=== PATIENT | male | born 2000 | race African-American/Black ===

== ENCOUNTER 2020-08-14 09:21 | Emergency (ER) | payer BC, SELFPAY ==
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
[2020-08-14 09:29] VITALS: BP 119/83; PULSE 80; RESP 16; TEMP 36.3; O2SAT 99
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
== END 2020-08-14 10:25 | disposition home or self-care (01) ==
PROVIDERS: Emergency Provider Nurse Practitioner
DX: S29.012A Strain of muscle and tendon of back wall of thorax, initial encounter (principal); S39.012A Strain of muscle, fascia and tendon of lower back, initial encounter; V48.5XXA Car driver injured in noncollision transport accident in traffic accident, initial encounter
CPT/HCPCS: 72100; 99213; G0463

== ENCOUNTER 2020-10-09 05:26 | Emergency (ER) | payer BC, SELFPAY ==
--- NOTE | ~2020-10-09 | CT_ITS ---
EXAMINATION: CT abdomen pelvis wo con DATE: 10/09/2020 05:49 INDICATION: Left lower quadrant abdominal pain. TECHNIQUE: Computed tomography (CT) of the abdomen and pelvis was performed without intravenous contr ast. Automated exposure control and iterative reconstruction technique were employed. The dose-length product was 221.46 mGy-cm. COMPARISON: None FINDINGS: Lung bases are clear. Heart size is normal. No pericardial or pleural effusion. Assessment of the vis ceral organs of the abdomen and pelvis is limited by the combination of a posterior fat and absence o f intravenous contrast. Liver, gallbladder, spleen, pancreas and bilateral adrenal glands are normal. 1-2 mm nonobstructing right renal stone. Partially decompressed bladder is normal. No dilated loops of bowel to suggest obstruction. The appendix is not visualized. No pericecal inflammatory change to suggest acute appendicitis. No free intraperitoneal gas or fluid. No pathologically enlarged abdomina l or pelvic lymphadenopathy. L5 is sacralized on the left. Bones are otherwise unremarkable. IMPRESSION: 1. 1-2 mm nonobstructing right renal stone. No acute intra-abdominal/pelvic process although assessme nt is limited by paucity of fat and absence of intravenous contrast. Reviewed, dictated and finalized at location A. IMPRESSION: 1. 1-2 mm nonobstructing right renal stone. No acute intra-abdominal/pelvic pro cess although assessment is limited by paucity of fat and absence of intravenou s contrast.
[2020-10-09 05:25] VITALS: BP 159/103; PULSE 52; RESP 22; TEMP 36.9; O2SAT 100
--- NOTE | 2020-10-09 05:38 | ED.GENADULT ---
HPI - General Adult General Chief complaint: Abdominal Pain <Jean Pierre Orellana MD - Last Filed: 10/09/20 07:04> Stated complaint: llq abd pain <Jean Pierre Orellana MD - Last Filed: 10/09/20 07:04> Time Seen by Provider: 10/09/20 05:38 <Jean Pierre Orellana MD - Last Filed: 10/09/20 07:04> History of Present Illness HPI narrative: Patient is a 20-year-old gentleman who presents the emergency department chief complaint of left lower quadrant pain. Patient reports he woke up from sleep having severe pain in the left lower quadrant reports not improved by anything or is worsened by anything. Patient reports has had some nausea with this denies fever denies chills patient reports has had no prior history of surgery on his abdomen. Patient denies history of kidney stones. Patient reports not improved by anything or is worsened by anything <Jean Pierre Orellana MD - Last Filed: 10/09/20 07:04> Related Data Allergies/adverse reactions: Allergies Allergy/AdvReac Type Severity Reaction Status Date / Time No Known Allergies Allergy Verified 10/09/20 05:40 <Jean Pierre Orellana MD - Last Filed: 10/09/20 07:04> Review of Systems Review of Systems: Narrative: A 10 system review of systems was completed on the patient and is negative except for what is stated in the HPI. Nursing and ancillary documentation was reviewed. <Jean Pierre Orellana MD - Last Filed: 10/09/20 07:04> [facility] Past Medical History Medical History: Medical History No acute medical problems <Jean Pierre Orellana MD - Last Filed: 10/09/20 07:04> Family History Family History: Family History Other No acute medical problems <Jean Pierre Orellana MD - Last Filed: 10/09/20 07:04> Social History Social History: Social History Smoking status: Never smoker Alcohol intake: current <Jean Pierre Orellana MD - Last Filed: 10/09/20 07:04> Exam Narrative: Exam Narrative: GENERAL: Well-appearing, well-nourished, and in no acute distress. HEAD: Normocephalic, atraumatic. EYES: PERRLA and EOMI. ENT: Nares clear, no rhinorrhea or epistaxis. Mucous membranes moist. NECK: Supple. CHEST: Clear to auscultation. No respiratory distress. HEART: Regular rate and rhythm. No murmur heard. Normal peripheral pulses. ABDOMEN: Soft, nontender, nondistended, normal active bowel sounds. EXTREMITIES: Normal range of motion. No edema. SKIN: Warm, dry, no rash. NEURO: No focal deficits. Alert and oriented x3. PSYCH: Normal mood and affect. <Jean Pierre Orellana MD - Last Filed: 10/09/20 07:04> Course Course Emergency Course: patient is feeling better, ct scan shows no obstructing stone. the patient does not have a large amout of intraabdominal fat. <Jean Pierre Orellana MD - Last Filed: 10/09/20 07:04> CT unrevealing. Patient still complaining of pain. He adamantly denies any symptoms. Pain resolved after toradol and he is eager for discharge. <Dustin Hodgson MD - Last Filed: 10/09/20 16:31> Vital Signs Vital signs: Vital Signs Temperature 36.9 C 10/09/20 05:25 Pulse Rate 52 L 10/09/20 05:25 Respiratory Rate 22 H 10/09/20 05:25 Blood Pressure 159/103 H 10/09/20 05:25 Pulse Oximetry 100 10/09/20 05:25 Temperature 36.9 C 10/09/20 05:25 Pulse Rate 56 L 10/09/20 09:36 Respiratory Rate 18 10/09/20 09:36 Blood Pressure 129/78 10/09/20 09:36 Pulse Oximetry 99 10/09/20 09:36 <Jean Pierre Orellana MD - Last Filed: 10/09/20 07:04> Vital Signs Temperature 36.9 C 10/09/20 05:25 Pulse Rate 52 L 10/09/20 05:25 Respiratory Rate 22 H 10/09/20 05:25 Blood Pressure 159/103 H 10/09/20 05:25 Pulse Oximetry 100
[2020-10-09] MEDS: SODIUM CHLORIDE 0.9% IV 1,000 ML 999 ML IV CONT (05:52)
[2020-10-09] MEDS: ONDANSETRON INJ 4 MG/2 ML VIAL IV PUSH (05:57)
[2020-10-09] MEDS: MORPHINE SULFATE (*CRX) 4 MG/ML INJ IV PUSH (06:00)
--- NOTE | 2020-10-09 06:17 | PC.NURSE ---
pt didnt tighten urine specimen cup, urine in bag, unable to obtain clean urine specimen at this time.
[2020-10-09 06:19] LABS: Basophils Absolute Auto 0.1 K/mm3 (0.0-0.1); Basophils Percent Auto 0.4 % (0.2-1.2); Eosinophils Absolute Auto 0.2 K/mm3 (0-0.3); Eosinophils Percent Auto 1.7 % (0-4.4); Hemoglobin 13.5 g/dL (14.0-18.0); Immature Granulocyte Absolute 0.06 K/mm3 (0.00-0.031); Immature Granulocyte Percent A 0.5 % (0-0.5); Lymphocytes Percent Auto 7.6 % (18.3-44.2); Mean Corpuscular HGB Conc 33.8 g/dl (32-36); Mean Corpuscular Hemoglobin 32.7 pg (26-34); Mean Corpuscular Volume 96.9 fl (80-100); Mean Platelet Volume 9.9 fl (7.4-10.4); Monocytes Absolute Auto 0.7 K/mm3 (0.1-0.6); Monocytes Percent Auto 6.2 % (2.6-8.5); Neutrophils Absolute Auto 9.9 K/mm3 (1.3-6.7); Neutrophils Percent Auto 83.6 % (45.5-73.1); Platelet Count Result 152 k/mm3 (150-375); Red Blood Count 4.13 M/mm3 (4.6-6.20); Red Cell Distribution Width 12.4 % (11.5-14.5); White Blood Count 11.8 K/mm3 (4.5-10.0)
[2020-10-09 06:30] LABS: Alanine Aminotransferase 21 U/L (4-50); Albumin Level 4.2 g/dL (3.5-5.1); Alkaline Phosphatase 68 U/L (38-126); Anion Gap 7 mmol/L (8-16); Aspartate Amino Transferase 35 U/L (17-59); Bilirubin,Total 0.9 mg/dL (0.2-1.3); Blood Urea Nitrogen 11 mg/dL (9-20); Calcium 9.1 mg/dL (8.4-10.2); Carbon Dioxide 27 mmol/L (22-30); Chloride 104 mmol/L (98-107); Estimated CRCL calculation 84 ml/min; Estimated Glomerular Filt Rate > 60; Glucose 181 mg/dL (75-110); Lipase 57 U/L (23-300); Potassium 3.5 mmol/L (3.4-5.0); Sodium 138 mmol/L (137-145)
--- NOTE | 2020-10-09 06:37 | PC.NURSE ---
pt states he is unable to provide urine sample at this time.
[2020-10-09 07:11] LABS: Add Urine Microscopic? YES; Amorphous Sediment Urine Few; Appearance Urine Cloudy (Clear); Bacteria Urine Trace /hpf; Bilirubin Urine Negative (Negative); Color Urine Yellow (Yellow); Glucose Urine UA 2+ mg/dL (Negative); Ketones Urine 2+ mg/dL (Negative); Leukocyte Esterase Ur Trace LEU/UL (Negative); Mucus Urine Heavy /lpf; Nitrate Urine Negative (Negative); Protein Urine 2+ mg/dL (Negative); RBC Urine 0-2 /hpf (0-2); Squamous Epithelial Cell Urine Rare /hpf (Few)
[2020-10-09 07:14] LABS: Blood Urine Negative (Negative); Specific Grav Ur 1.031 (1.001-1.035)
--- NOTE | 2020-10-09 08:31 | PC.NURSE ---
Pt requesting more pain medication. ERP made aware.
[2020-10-09] MEDS: KETOROLAC 30 MG/ML VIAL (*BKC) IV PUSH (08:47)
--- NOTE | 2020-10-09 08:49 | PC.NURSE ---
Dr. Hodgson at bedside to update pt on results.
--- NOTE | 2020-10-09 09:28 | PC.NURSE ---
Pt states he is feeling much better and ready for discharge. Ride on the way to nut picker pt. Christie Hayes.
[2020-10-09 09:36] VITALS: BP 129/78; PULSE 56; RESP 18; O2SAT 99
== END 2020-10-09 09:37 | disposition home or self-care (01) ==
PROVIDERS: Emergency Provider Emergency Medicine
DX: R10.32 Left lower quadrant pain (principal); N20.0 Calculus of kidney
CPT/HCPCS: 36415; 74176; 80053; 81001; 83690; 85025; 87086; 87088; 96361; 96374; 96375; 99284; J1885; J2270; J2405; J7030

== ENCOUNTER 2020-12-10 10:08 | Emergency (ER) | payer BC, SELFPAY ==
[2020-12-10 10:15] VITALS: BP 133/92; PULSE 53; RESP 16; TEMP 36.2; O2SAT 100
--- NOTE | 2020-12-10 10:44 | ED.ABDPAIN ---
HPI - Abdominal Pain General Chief Complaint: Abdominal Pain Stated Complaint: R SIDE ABD PAIN Time Seen by Provider: 12/10/20 10:19 Source: patient and RN notes reviewed Mode of arrival: ambulatory Limitations: no limitations History of Present Illness HPI narrative: Patient presents today complaining of right lower quadrant abdominal pain that woke him up from sleep this morning. It has been constant since waking up. Associated symptoms include chills. Denies nausea, vomiting, diarrhea, constipation, sweats, fever, urinary symptoms. Currently rates his pain 7/10 and has tried no treatment prior to arrival. Patient was in the ER in September 2020 for similar symptoms on the left side, but states at that time symptoms were much worse. A CT scan was performed without contrast and was unremarkable except for a 1 to 2 mm renal stone on the right. Patient was discharged with a prescription for dicyclomine. MD elicited complaint: abdominal pain Related Data Allergies Allergy/AdvReac Type Severity Reaction Status Date / Time No Known Allergies Allergy Verified 10/09/20 05:40 Review of Systems Review of Systems: Narrative: CONSTITUTIONAL: Denies body aches, fever, or sweats. + Chills EYES: Denies visual changes, redness, or discharge. ENT: Denies rhinorrhea, congestion, sore throat, or otalgia. CARDIOVASCULAR: Denies chest pain, palpitations, or edema. RESPIRATORY: Denies cough or dyspnea. GASTROINTESTINAL: Denies nausea, vomiting, or diarrhea. + Abdominal pain GENITOURINARY: Denies dysuria or hematuria. SKIN: Denies rash, itching, or wounds. MUSCULOSKELETAL: Denies back pain, joint pain, or myalgia. NEUROLOGIC: Denies headache, numbness, tingling, or weakness. PSYCH: Denies depression or anxiety. [facility] Past Medical History Medical History No acute medical problems Family History Family History Other No acute medical problems Social History Social History Smoking status: Never smoker Alcohol intake: current Comments At time of signature, I have reviewed and agree with nursing past medical, surgical, social and family history unless otherwise noted. Please see nursing chart for further information. There is no relevant family history pertinent to the presenting complaint Exam Narrative: Exam Narrative: GENERAL: Well-appearing, well-nourished, and in mild pain distress. Patient sits hunched over on the exam table. HEAD: Normocephalic, atraumatic. EYES: EOMI. No redness or drainage. Conjunctivae normal. ENT: Mucous membranes pink and moist. NECK: Normal AROM. CHEST: No respiratory distress. Clear to auscultation. HEART: Regular rate and rhythm. No murmur appreciated. Normal peripheral pulses. ABDOMEN: Soft, nondistended, normal active bowel sounds. +Tenderness to right lower quadrant with guarding, without rebound. Palpation of left lower quadrant reproduces pain in the right lower quadrant. MUSCULOSKELETAL: No bony tenderness. EXTREMITIES: Normal range of motion. No edema. SKIN: Warm, dry, no rash. Capillary refill normal. Normal skin turgor. NEURO: No focal deficits. Alert and oriented x3. Gait steady. PSYCH: Normal affect. No signs of depression or anxiety. Course Vital Signs Vital signs: Vital Signs Temperature 97.2 F L 12/10/20 10:15 Pulse Rate 53 L 12/10/20 10:15 Respiratory Rate 16 12/10/20 10:15 Blood Pressure 133/92 H 12/10/20 10:15 Pulse Oximetry 100 12/10/20 10:15 Temperature 97.2 F L 12/10/20 10:15 Pulse Rate 53 L 12/10/20 10:15 Respiratory Rate 16 12/10/20 10:15 Blood Pressure 133/92 H 12/10/20 10:15 Pulse Oximetry 100 12/10/20 10:15 Reviewed Transfer Transfered to: [facility]: Other (Private vehicle) Transfer rationale: Right lower quadrant abdominal pain Accept
== END 2020-12-10 10:51 | disposition short-term general hospital (02) ==
PROVIDERS: Emergency Provider Nurse Practitioner
DX: R10.31 Right lower quadrant pain (principal)
CPT/HCPCS: 81003; 99212; G0463

== ENCOUNTER 2020-12-10 11:00 | Emergency (ER) | payer BC, SELFPAY ==
--- NOTE | ~2020-12-10 | CT_ITS ---
EXAMINATION: CT abdomen pelvis wo con DATE: 12/10/2020 12:16 INDICATION: Right lower quadrant abdominal pain. Right flank pain. TECHNIQUE: Computed tomography (CT) of the abdomen and pelvis was performed without intravenous contr ast. Automated exposure control and iterative reconstruction technique were employed. The dose-length product was 181.41 mGy-cm. COMPARISON: CT abdomen and pelvis 10/09/2020 FINDINGS: The visualized portions of the lung bases are clear without pneumonia or pleural effusion. The heart size is normal. No pericardial effusion. The liver, spleen, gallbladder, pancreas, adrenal glands, and left kidney are normal. There is a 2 mm stone in right kidney. There are no dilated loops of bowel. The appendix is normal. There are no pathologically enlarged lymph nodes. There is no free intraperitoneal fluid. The bones are unremarkable. IMPRESSION: 1. 2 mm nonobstructing right kidney stone. Reviewed, dictated and finalized at location A.
[2020-12-10 11:30] VITALS: BP 106/78; PULSE 50; RESP 18; TEMP 37.2; O2SAT 100
[2020-12-10 11:37] LABS: Basophils Absolute Auto 0.1 K/mm3 (0.0-0.1); Basophils Percent Auto 0.9 % (0.2-1.2); Eosinophils Absolute Auto 0.1 K/mm3 (0-0.3); Eosinophils Percent Auto 2.5 % (0-4.4); Hematocrit 43.1 % (42.0-52.0); Hemoglobin 14.3 g/dL (14.0-18.0); Immature Granulocyte Absolute 0.01 K/mm3 (0.00-0.031); Immature Granulocyte Percent A 0.2 % (0-0.5); Lymphocytes Absolute Auto 1.29 K/mm3 (0.9-3.2); Lymphocytes Percent Auto 23.2 % (18.3-44.2); Mean Corpuscular HGB Conc 33.2 g/dl (32-36); Mean Corpuscular Hemoglobin 31.7 pg (26-34); Mean Corpuscular Volume 95.6 fl (80-100); Mean Platelet Volume 10.5 fl (7.4-10.4); Monocytes Absolute Auto 0.4 K/mm3 (0.1-0.6); Monocytes Percent Auto 7.9 % (2.6-8.5); Neutrophils Absolute Auto 3.6 K/mm3 (1.3-6.7); Neutrophils Percent Auto 65.3 % (45.5-73.1); Platelet Count Result 176 k/mm3 (150-375); Red Blood Count 4.51 M/mm3 (4.6-6.20); Red Cell Distribution Width 12.8 % (11.5-14.5); White Blood Count 5.6 K/mm3 (4.5-10.0)
[2020-12-10 11:46] LABS: Add Urine Microscopic? YES; Appearance Urine Clear (Clear); Bacteria Urine Trace /hpf; Bilirubin Urine Negative (Negative); Blood Urine Negative (Negative); Color Urine Yellow (Yellow); Glucose Urine UA Negative (Negative); Ketones Urine Negative (Negative); Leukocyte Esterase Ur Trace LEU/UL (Negative); Mucus Urine Few /lpf; Nitrate Urine Negative (Negative); Protein Urine Negative (Negative); Specific Grav Ur 1.021 (1.001-1.035); Transitional Epi Cells Urine Rare /hpf (None Seen); WBC Urine 51-75 /hpf
[2020-12-10 11:47] LABS: Alanine Aminotransferase 21 U/L (4-50); Albumin Level 4.4 g/dL (3.5-5.1); Alkaline Phosphatase 57 U/L (38-126); Anion Gap 9 mmol/L (8-16); Aspartate Amino Transferase 30 U/L (17-59); Bilirubin,Total 0.8 mg/dL (0.2-1.3); Blood Urea Nitrogen 13 mg/dL (9-20); Calcium 9.3 mg/dL (8.4-10.2); Carbon Dioxide 24 mmol/L (22-30); Chloride 105 mmol/L (98-107); Estimated Glomerular Filt Rate > 60; Glucose 100 mg/dL (75-110); Lipase 68 U/L (23-300); Potassium 4.2 mmol/L (3.4-5.0); Sodium 138 mmol/L (137-145)
[2020-12-10] MEDS: SODIUM CHLORIDE 0.9% IV 1,000 ML 999 ML IV CONT (11:51)
[2020-12-10] MEDS: HYOSCYAMINE SULFATE 0.125 MG TABLET PO (11:52)
[2020-12-10] MEDS: FAMOTIDINE 20 MG/2 ML VIAL IV PUSH (11:52)
--- NOTE | 2020-12-10 12:57 | ED.GENADULT ---
HPI - General Adult General Chief complaint: Abdominal Pain Stated complaint: ABD PAIN Time Seen by Provider: 12/10/20 11:05 Source: patient and RN notes reviewed Mode of arrival: ambulatory Limitations: no limitations History of Present Illness HPI narrative: Patient is a 20-year-old male presents to emergency department for evaluation of last right lower quadrant abdominal pain that began today patient was seen at urgent care referred to emergency department no sharp pain in the right lower abdomen denies any other complaints or symptoms denies similar occurrence and on arrival is in the room in no distress resting comfortably Related Data Allergies Allergy/AdvReac Type Severity Reaction Status Date / Time No Known Allergies Allergy Verified 12/10/20 11:02 Review of Systems Review of Systems: All systems reviewed & are unremarkable except as noted in HPI and below PMFSH Past Medical History Medical History No acute medical problems Family History Family History Other No acute medical problems Social History Social History Smoking status: Never smoker Alcohol intake: current Exam Narrative: Exam Narrative: GENERAL: Well-appearing, well-nourished, and in no acute distress. HEAD: Normocephalic, atraumatic. EYES: PERRLA and EOMI. ENT: Nares clear, no rhinorrhea or epistaxis. Mucous membranes moist. CHEST: Clear to auscultation. No respiratory distress. No wheezes rales or rhonchi HEART: Regular rate and rhythm. No murmur heard. Normal peripheral pulses. ABDOMEN: Soft, right lower quadrant abdominal pain remainder of abdomen nontender no rebound or guarding, nondistended EXTREMITIES: Normal range of motion. No edema. SKIN: Warm, dry, no rash. NEURO: No focal deficits. Alert and oriented x3. PSYCH: Normal mood and affect. Course Course Emergency Course: Patient evaluated the emergency department will be discharged home with outpatient follow-up patient will also be tested and treated for STDs given his urinary tract infection patient is aware of this patient agrees with this plan felt appropriate for outpatient reevaluation Vital Signs Vital signs: Vital Signs Temperature 98.9 F 12/10/20 11:30 Pulse Rate 50 L 12/10/20 11:30 Respiratory Rate 18 12/10/20 11:30 Blood Pressure 106/78 12/10/20 11:30 Pulse Oximetry 100 12/10/20 11:30 Temperature 98.9 F 12/10/20 11:30 Pulse Rate 50 L 12/10/20 11:30 Respiratory Rate 18 12/10/20 11:30 Blood Pressure 106/78 12/10/20 11:30 Pulse Oximetry 100 12/10/20 11:30 Medical Decision Making MDM Narrative Medical decision making narrative: Patient presented with abdominal pain, urinary tract infection diagnosed patient had no other high risk changes in the blood work or imaging will be discharged home with outpatient follow-up provided with reasons to return agreeing with this plan is afebrile nontoxic-appearing no distress and without emesis Vital Signs Vital Signs: Vital Signs Temperature 98.9 F 12/10/20 11:30 Pulse Rate 50 L 12/10/20 11:30 Respiratory Rate 18 12/10/20 11:30 Blood Pressure 106/78 12/10/20 11:30 Pulse Oximetry 100 12/10/20 11:30 Temperature 98.9 F 12/10/20 11:30 Pulse Rate 50 L 12/10/20 11:30 Respiratory Rate 18 12/10/20 11:30 Blood Pressure 106/78 12/10/20 11:30 Pulse Oximetry 100 12/10/20 11:30 Lab Data Result diagrams: 12/10/20 11:27 12/10/20 11:27 Labs: Lab Results 12/10/20 12/10/20 12/10/20 Range/Units 11:27 11:27 11:27 WBC 5.6 (4.5-10.0) K/mm3 RBC 4.51 L (4.6-6.20) M/mm3 Hgb 14.3 (14.0-18.0) g/dL Hct 43.1 (42.0-52.0) % MCV 95.6 (80-100) fl MCH 31.7 (26-34) pg MCHC 33.2 (32-36) g/dl RDW 12.8 (11.5-14.5) % Plt Count 176
[2020-12-10] MEDS: KETOROLAC 30 MG/ML VIAL (*BKC) IV PUSH (13:07)
[2020-12-10 13:15] VITALS: BP 110/75; PULSE 58; RESP 18; TEMP 36.9; O2SAT 100
== END 2020-12-10 13:15 | disposition home or self-care (01) ==
PROVIDERS: Emergency Medicine Emergency Medical Services; Emergency Provider Emergency Medicine
DX: N39.0 Urinary tract infection, site not specified (principal); R10.31 Right lower quadrant pain
CPT/HCPCS: 36415; 74176; 80053; 81001; 81003; 83690; 85025; 87086; 96365; 96375; 99284; A9270; J0696; J1885; J7030

== ENCOUNTER 2021-01-06 07:17 | Day surgery (SDC) | payer BC, SELFPAY ==
[2021-01-06] VITALS (11 sets, daily range): BP systolic 126–151; BP diastolic 72–93; PULSE 52–99; RESP 12–21; TEMP 36.3–37.2; O2SAT 100
--- NOTE | ~2021-01-06 | CT_ITS ---
EXAMINATION: CT abdomen pelvis w con DATE: 01/06/2021 09:35 INDICATION: Diffuse lower abdominal pain TECHNIQUE: Computed tomography (CT) of the abdomen and pelvis was performed without intravenous contr ast. Automated exposure control and iterative reconstruction technique were employed. Exam dose: 336 .83 mGy-cm total exam DLP. COMPARISON: 12/10/2020 CT abdomen pelvis FINDINGS: The lung bases are clear of infiltrate or consolidation. Normal heart size. No pericardial or pleural effusion. The liver, spleen, gallbladder, bile ducts, pancreas, pancreatic, adrenal glands and kidneys are unre markable. Normal caliber of the abdominal aorta. No intraperitoneal or retroperitoneal or pelvic mass lesion or adenopathy or ascites. There is a tubular 10 mm diameter structure in the right lower quadrant with mild thickening of the w all suggesting possible appendicitis. No abscess is evident. Clinical correlation is advised. No bowel obstruction or intraperitoneal free air. Included skeletal structures are unremarkable. IMPRESSION: Probable 10 mm dilated appendix with wall thickening; recommend clinical correlation for acute appendicitis Reviewed, dictated and finalized at [facility] Reviewed, dictated and finalized at [facility]. IMPRESSION: Probable 10 mm dilated appendix with wall thickening; recommend cl inical correlation for acute appendicitis
--- NOTE | 2021-01-06 08:03 | PC.NURSE ---
pt in waiting room - c/o about waiting for a room - using foul language - speaking loudly - security speaking with pt now.
[2021-01-06 08:52] LABS: Basophils Percent Auto 0.2 % (0.2-1.2); Eosinophils Percent Auto 0.2 % (0-4.4); Hematocrit 47.9 % (42.0-52.0); Hemoglobin 15.8 g/dL (14.0-18.0); Immature Granulocyte Absolute 0.08 K/mm3 (0.00-0.031); Immature Granulocyte Percent A 0.5 % (0-0.5); Lymphocytes Absolute Auto 1.26 K/mm3 (0.9-3.2); Lymphocytes Percent Auto 7.6 % (18.3-44.2); Mean Corpuscular Hemoglobin 31.5 pg (26-34); Mean Corpuscular Volume 95.6 fl (80-100); Monocytes Absolute Auto 1.1 K/mm3 (0.1-0.6); Monocytes Percent Auto 6.5 % (2.6-8.5); Neutrophils Absolute Auto 14.1 K/mm3 (1.3-6.7); Platelet Count Result 243 k/mm3 (150-375); Red Blood Count 5.01 M/mm3 (4.6-6.20); Red Cell Distribution Width 13.2 % (11.5-14.5); White Blood Count 16.6 K/mm3 (4.5-10.0)
[2021-01-06 09:05] LABS: Add Urine Microscopic? YES; Appearance Urine Clear (Clear); Bilirubin Urine Negative (Negative); Blood Urine Negative (Negative); Color Urine Amber (Yellow); Glucose Urine UA Negative (Negative); Ketones Urine 1+ mg/dL (Negative); Leukocyte Esterase Ur 1+ LEU/UL (Negative); Mucus Urine Heavy /lpf; Nitrate Urine Negative (Negative); Protein Urine 2+ mg/dL (Negative); RBC Urine 0-2 /hpf (0-2); Squamous Epithelial Cell Urine Occasional /hpf (Few)
[2021-01-06 09:05] LABS: Alanine Aminotransferase 41 U/L (4-50); Albumin Level 5.1 g/dL (3.5-5.1); Alkaline Phosphatase 73 U/L (38-126); Anion Gap 12 mmol/L (8-16); Aspartate Amino Transferase 41 U/L (17-59); Bilirubin,Total 1.7 mg/dL (0.2-1.3); Blood Urea Nitrogen 13 mg/dL (9-20); Calcium 10.3 mg/dL (8.4-10.2); Carbon Dioxide 26 mmol/L (22-30); Chloride 97 mmol/L (98-107); Estimated CRCL calculation 87 ml/min; Estimated Glomerular Filt Rate > 60; Glucose 115 mg/dL (65-110); Lipase 69 U/L (23-300); Potassium 3.8 mmol/L (3.4-5.0); Sodium 135 mmol/L (137-145)
[2021-01-06 09:06] LABS: Specific Grav Ur 1.039 (1.001-1.035)
[2021-01-06] MEDS: ONDANSETRON INJ 4 MG/2 ML VIAL IV PUSH (09:23)
[2021-01-06] MEDS: SODIUM CHLORIDE 0.9% IV 1,000 ML 999 ML IV CONT (09:23)
--- NOTE | 2021-01-06 09:46 | ED.ABDPAIN ---
HPI - Abdominal Pain General Chief Complaint: Abdominal Pain Stated Complaint: kidney stone Time Seen by Provider: 01/06/21 08:56 History of Present Illness HPI narrative: Patient presents with lower abdominal pain. Symptoms present for the past 3 to 4 days. Pain is achy/crampy, constant, in his lower abdomen, no radiation. Reports nausea and vomiting denies any bile or blood. Denies any diarrhea has been unable to have a bowel movement as well. Denies any urinary. Denies any fevers. He reports a history of renal stones and is unsure if this would be related they are to come in for evaluation. Related Data Allergies Allergy/AdvReac Type Severity Reaction Status Date / Time No Known Allergies Allergy Verified 01/06/21 14:26 Review of Systems Review of Systems: CONSTITUTIONAL: Denies fever, chills, or sweats. EYES: Denies visual changes, redness, or discharge. ENT: Denies rhinorrhea, congestion, sore throat, or otalgia. CARDIOVASCULAR: Denies chest pain, palpitations, or edema. RESPIRATORY: Denies cough or dyspnea. GASTROINTESTINAL: Denies diarrhea. GENITOURINARY: Denies dysuria or hematuria. SKIN: Denies rash or itching. MUSCULOSKELETAL: Denies back pain, joint pain, or myalgia. NEUROLOGIC: Denies headache, numbness, dizziness, or weakness. PSYCHIATRIC: Denies anxiety or depression. 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 He also works at [employer]. He wishes to be a full code. He designates his mother, Pia, to be his medical decision maker if needed. Smoking status: Never smoker Alcohol intake: current Substance use: current Substance use type: marijuana Other substance usage details: Smokes marijuana regularly/daily. Last use: 2 days ago Occupation/Education: student Gender identity (if verbalized by the patient): Male Exam Narrative: GENERAL: Well-appearing, well-nourished, and in no acute distress. HEAD: Normocephalic, atraumatic. EYES: PERRLA and EOMI. ENT: Nares clear, no rhinorrhea or epistaxis. Mucous membranes moist. NECK: Supple. No masses. No JVD ABDOMEN: Mild diffuse lower abdominal pain, soft nondistended. EXTREMITIES: Normal range of motion. No edema. SKIN: Warm, dry, no rash. NEURO: No focal deficits. Alert and oriented x3. PSYCH: Normal mood and affect. Course Reevaluation(s) Reevaluation #1: Patient is resting comfortably reports there is some improvement with his symptoms given supportive therapy in the ER. Imaging is pending Date: 01/06/21 Time: 09:59 Consultations Consultation #1: Pending surgical consultation for appendicitis Date: 01/06/21 Time: 11:04 Consultation #2: Pending Surgical evaluation Date: 01/06/21 Time: 12:38 Vital Signs Vital signs: Vital Signs Temperature 37.2 C 01/06/21 07:41 Pulse Rate 72 01/06/21 07:41 Respiratory Rate 16 01/06/21 07:41 Blood Pressure 132/83 01/06/21 07:41 Pulse Oximetry 100 01/06/21 07:41 Temperature 37.2 C 01/06/21 07:41 Pulse Rate 59 L 01/06/21 13:55 Respiratory Rate 15 01/06/21 13:55 Blood Pressure 133/88 01/06/21 13:55 Pulse Oximetry 100 01/06/21 13:55 MDM - Abdominal Pain MDM Narrative Medical decision making narrative: H&P as above, vss, pt looks clinically well, exam diffuse lower abdominal pain, labs with leukocytosis, img concerning for appendicitis, additional labs/img c
[2021-01-06] MEDS: MORPHINE SULFATE (*CRX) 4 MG/ML INJ IV PUSH (10:44)
--- NOTE | 2021-01-06 13:30 | PM.IMHP ---
H&P: HPI History of Present Illness Date/Time: 01/06/21 13:30 Chief Complaint: Lower abdominal pain, vomiting Narrative: This is an -Finnish 20 yo male who is otherwise healthy and presented to the ER today with complaints of lower abdominal pain. He reports that two days ago he took a nap in the afternoon after having some mimosas and woke up with some mild right lower quadrant abdominal pain. He developed vomiting through the night and had difficulty sleeping due to the pain and vomiting. Yesterday, his pain persisted and he felt it migrated across his entire lower abdomen. He attempted to go to work, but had to leave due to the abdominal pain. He denies fever or chills. Last night, he tried to wait out the pain and it continued again through the night with a few more episodes of vomiting. Due to the progressively worsening pain, he presented to the ER for further evaluation. CT scan of the abdomen and pelvis showed a tubular structure, probably the appendix, that measures up to 10 mm with wall thickening, suggestive of possible acute uncomplicated appendicitis. Labs revealed a white blood cell count of 16,600. The ER provider consulted our service for surgical evaluation of possible acute appendicitis. The patient is now seen in the ER. He is still reporting 8/10 abdominal pain across his lower abdomen. He does feel it is more on the left lower quadrant with the pain migrating over the last 24 hours. He denies any other symptoms. Also to note, he was recently on doxycycline that was prescribed to him by the ER on 12/10/20 after he was evaluated at that time with RLQ abdominal pain. Labs at that time showed no leukocytosis and his CT scan abd/pelvis showed a nonobstructing right renal stone, but no other acute intraabdominal abnormalities. Urinalysis was abnormal and he was treated for suspected urinary tract infection and possible STDs. They reported having done STD testing, but I do not see any test results in the electronic medical record. Urine culture showed no growth of any organisms. Patient was not sure of any STD testing and denies any recent unprotected sex. He reports taking the antibiotics as prescribed and finished the antibiotics over the weekend before his pain started. He reports the pain that started on Tuesday was similar to the pain he experienced in September and a few weeks ago, but the last two times this resolved quickly in the ER with treatment. This time, his abdominal pain has migrated and is persistent even with analgesics. Denies any hematuria, dysuria, penile discharge or rash, or any other urinary complaints. Review of Systems Review of Systems: All systems reviewed & are unremarkable except as noted in HPI and below Constitutional: Constitutional: Reports as per HPI, Denies chills, Denies fatigue and Denies fever(s) ENT: Reports system reviewed and no additional complaints, except as documented and Reports Normal hearing present Cardiovascular: Cardiovascular: Reports no additional cardiovascular complaints, Denies chest pain and Denies leg edema Respiratory: Respiratory: Reports no additional respiratory complaints, Denies cough and Denies dyspnea Gastrointestinal: Gastrointestinal: Reports as per HPI, Reports no additional gastrointestinal complaints, Reports abdominal pain, Denies bloating, Denies change in bowel habits, Denies change in stool character, Denies constipation, Denies diarrhea, Reports nausea, Reports vomiting and Denies hematemesis Genitourinary: Genitourinary: Denies hematuria and Denies dysuria Musculoskeletal: Musculoskeletal: Denies abnormal gait and Denies joint swelling Integumentary/Breasts: Skin/Breast: Denies wounds Neurologic: Reports system reviewed and no additional complaints, except as documented, Denies dizziness, Denies focal weakness, Denies numbness and Denies tingling Psychiatric: Psychiatric: Reports anxiety (about thinking of surgery) [facility] Past Medical History Medical History (Updated
[2021-01-06] MEDS: fentaNYL CITRATE INJ (*CRX) 100 MCG/2 ML VIAL 50 MCG IV PUSH (14:13)
--- NOTE | 2021-01-06 14:51 | WPDANESEPPF ---
Anes - Initial Pre Proc Eval Procedure: Operation Date: 01/06/21 14:30 Proposed Procedures p Laparoscopic Appendectomy,Possible Open - Rolo Jasso DO Date/Time: 01/06/21 14:51 Surgeon: Rolo Jasso DO Pre Op Diagnosis: Acute Appendicitis Patient Data Age: 20 Gender: M Height: 1.7 m Weight: 68 kg Last Vital Signs Temp 37.2 C 01/06/21 07:41 Pulse 59 L 01/06/21 13:55 Resp 15 01/06/21 13:55 BP 133/88 01/06/21 13:55 Pulse Ox 100 01/06/21 13:55 Allergies Allergy/AdvReac Type Severity Reaction Status Date / Time No Known Allergies Allergy Verified 01/06/21 14:26 Home Medications Medication Instructions Recorded Confirmed Type ibuprofen [IBU] 600 mg PO QID PRN #7 tablet 12/10/20 01/06/21 Rx Laboratory Tests 01/06/21 01/06/21 01/06/21 08:43 08:43 08:52 WBC 16.6 K/mm3 H K/mm3 (4.5-10.0) RBC 5.01 M/mm3 M/mm3 (4.6-6.20) Hgb 15.8 g/dL g/dL (14.0-18.0) Hct 47.9 % % (42.0-52.0) MCV 95.6 fl fl (80-100) MCH 31.5 pg pg (26-34) MCHC 33.0 g/dl g/dl (32-36) RDW 13.2 % % (11.5-14.5) Plt Count 243 k/mm3 k/mm3 (150-375) MPV 10.0 fl fl (7.4-10.4) Immature Gran % (Auto) 0.5 % % (0-0.5) Neut % (Auto) 85.0 % H % (45.5-73.1) Lymph % (Auto) 7.6 % L % (18.3-44.2) Jones % (Auto) 6.5 % % (2.6-8.5) Eos % (Auto) 0.2 % % (0-4.4) Baso % (Auto) 0.2 % % (0.2-1.2) Lymph # (Auto) 1.26 K/mm3 K/mm3 (0.9-3.2) Jones # (Auto) 1.1 K/mm3 H K/mm3 (0.1-0.6) Eos # (Auto) 0.0 K/mm3 K/mm3 (0-0.3) Baso # (Auto) 0.0 K/mm3 K/mm3 (0.0-0.1) Abs Immat Gran (auto) 0.08 K/mm3 H K/mm3 (0.00-0.031) Absolute Neuts (auto) 14.1 K/mm3 H K/mm3 (1.3-6.7) Absolute Nucleated RBC 0.0 K/mm3 K/mm3 (0.0-0.012) Nucleated RBC % 0.0 % % (0.0-0.2) Sodium 135 mmol/L L mmol/L (137-145) Potassium 3.8 mmol/L mmol/L (3.4-5.0) Chloride 97 mmol/L L mmol/L (98-107) Carbon Dioxide 26 mmol/L mmol/L (22-30) Anion Gap 12 mmol/L mmol/L (8-16) BUN 13 mg/dL mg/dL (9-20) Creatinine 1.10 mg/dL mg/dL (0.7-1.3) Estim Creat Clear Calc 87 ml/min ml/min Estimated GFR > 60 (59 - ) Glucose 115 mg/dL H mg/dL (65-110) Calcium 10.3 mg/dL H mg/dL (8.4-10.2) Total Bilirubin 1.7 mg/dL H mg/dL (0.2-1.3) AST 41 U/L U/L (17-59) ALT 41 U/L U/L (4-50) Alkaline Phosphatase 73 U/L U/L (38-126) Total Protein 9.0 g/dL H g/dL (6.3-8.2) Albumin 5.1 g/dL g/dL (3.5-5.1) Lipase 69 U/L U/L (23-300) Urine Color Gunjan (Yellow) Urine Appearance Clear (Clear) Urine pH 6.0 (5.0-9.0) Ur Specific Perry 1.039 H (1.001-1.035) Urine Protein 2+ mg/dL H mg/dL (Negative) Urine Glucose (UA) Negative mg/dL mg/dL (Negative) Urine Ketones 1+ mg/dL H mg/dL (Negative) Ur Blood (Man) Negative (Negative) Urine Nitrate Negative (Negative) Urine Bilirubin Negative (Negative) Urine Urobilinogen 2.0 mg/dL H mg/dL (<2.0) Leukocyte Esterase Rfl 1+ RUSS/UL H RUSS/UL (Negative) Urine RBC 0-2 /hpf /hpf (0-2) Urine WBC 10-15 /hpf H /hpf Ur Squamous Epith Cells Occasional /hpf /hpf (Few) Urine Mucus Heavy /lpf H /lpf Patient hx anesthesia problems: none Family hx anesthesia problems: none PMFSH Past Medical History Medical History (Updated 01/06/21 @ 14:52 by Ji Ramirez MD) Acute appendicitis Surgical History Surgical History No history of previous surgery
[2021-01-06] MEDS: LACTATED RINGERS 1,000 ML 30 ML IV CONT ×2 (14:55→16:45)
--- NOTE | 2021-01-06 15:02 | WPDHPUPDATE1 ---
History and Physical Update Update Date/Time: 01/06/21 15:02 History and Physical has been reviewed, including an updated exam of the patient. There are NO changes in the patient's condition. Risks, benefits, and alternatives of laparoscopic appendix appendectomy possible open, have been discussed and questions answered. Patient agrees to proceed with procedure.
[2021-01-06] MEDS: BUPIVACAINE/EPINEPHRINE 0.5% 30 ML VIAL INFILTRATE (15:38)
[2021-01-06] MEDS: KETOROLAC 30 MG/ML VIAL (*BKC) IV PUSH (15:39)
--- NOTE | 2021-01-06 16:43 | W.PM.PROC2 ---
Procedure Note - Detailed Date of Procedure 01/06/21 Pre-op Diagnosis Acute uncomplicated Appendicitis Post-op Diagnosis other (Same, and 2. Small indirect left inguinal hernia) Procedure Performed laparoscopic appendectomy Surgeon Miguel Angel Manuel MD [employer] Kristian TORRES. OR Driving Teacher Anesthesia general Indications Patient was seen in the ED and had elevated white count, history of increasing lower abdominal pain along with a CT scan showing suspicious enlargement of the appendix without perforation. Therefore, alternatives of laparoscopic appendectomy versus treatment with antibiotics for more than 2 days in the hospital and then a 30% chance that this was not be successful have been described to the patient he wished to proceed with laparoscopic possible open appendectomy. Findings A long appendix with the proximal half swollen to 10 mm. No signs of perforation. Description of Procedure The patient was seen again in the Holding Room. The risks, benefits, complications, treatment options, and expected outcomes were discussed with the patient and/or family. The possibilities of reaction to medication, pulmonary aspiration, perforation of viscus, bleeding, recurrent infection, finding a normal appendix, the need for additional procedures, failure to diagnose a condition, and creating a complication requiring transfusion or operation were discussed. There was concurrence with the proposed plan and informed consent was obtained. The site of surgery was properly noted/marked. The patient was taken to Operating Room, and a time out was preformed which identified this as the proper patient, and the procedure verified as laparoscopic appendectomy, possible open. The patient was placed in the supine position and general anesthesia was induced, along with placement of orogastric tube, SCD hose, and a Thibodeaux catheter. The abdomen was prepped and draped in a sterile fashion. A 5 mm umbilical incision was made and the peritoneal cavity was accessed using the Veress needle technique. Once the abdomen was insufflated to 14 mmHg pressure a 5 mm XL trocar over the 0? 5 mm scope was carefully twisted into the abdomen via the umbilicus. The pneumoperitoneum was then established to steady pressure of 14 mm Hg. A 12 mm laparoscopic port was placed through a transverse suprapubic incision. An additional 5 mm cannula was then placed in the left lower quadrant of the abdomen at a level half way between the umbilicus and pubic symphysis under direct vision. A careful evaluation of the entire abdomen was carried out. The patient was placed in Trendelenburg and left lateral decubitus position. The small intestines were retracted in the cephalad and left lateral direction away from the pelvis and right lower quadrant. The patient was found to have an enlarged and inflamed appendix that was extending [into the right side of the pelvis. There was no evidence of perforation. The appendix was carefully dissected. Once it was free a 45 mm ethicon endogastroentestinal stapler with a vascular load was placed across the mesoappendix. This was fired and hemostasis was checked along the staple line and appeared to be adequate. For this patient, this divided the entire mesoappendix and we were able to proceed immediately to stapling off the appendix at it's junction with the cecum. The appendix was then divided at its base using the same 45 mm stapler with a 3.5 mm bowel wall load. Minimal appendiceal stump was left in place. There was no evidence of bleeding, leakage, or complication after division of the appendix at its junction with the cecum.. The appendix was then placed in an endobag which had been brought through the 12 mm suprapubic port site. The appendix and the bag were then extracted through this larger port site in the suprapubic position. The suprapubic port site was closed using a #1 Polysorb suture passed with a standard needle mcgrath externally through the an incision
[2021-01-06] MEDS: fentaNYL CITRATE INJ (*CRX) 100 MCG/2 ML VIAL 25 MCG IV PUSH ×2 (17:06→17:10)
[2021-01-06] MEDS: oxyCODONE HCL (*CRX) 5 MG TAB IR PO (17:53)
== END 2021-01-06 18:08 | disposition home or self-care (01) ==
LOC: ANHED 13:49 → ANHSURGERY 14:02
PROVIDERS: Emergency Medicine; Surgery; Emergency Provider Emergency Medicine; Visit Provider Surgery
PROC: 0DTJ4ZZ Resection of Appendix, Percutaneous Endoscopic Approach (ICD-10-PCS; CPT 44970; principal; 2021-01-06 14:30)
DX: K35.30 Acute appendicitis with localized peritonitis, without perforation or gangrene (principal); F12.90 Cannabis use, unspecified, uncomplicated; K40.90 Unilateral inguinal hernia, without obstruction or gangrene, not specified as recurrent
CPT/HCPCS: 44970; 36415; 74177; 80053; 81001; 83690; 85025; 87086; 87088; 88304; A9270; J1100; J1885; J2250; J2270; J2405; J2543; J2704; J2710; J3010; J7030; J7120; Q9967